=== PATIENT | male | born 1975 | race African-American/Black ===

== ENCOUNTER 2018-12-09 07:18 | Emergency (ER) | payer MEDICARE, MEDICAID ==
[~2018-12-09] VITALS: Ht 175.3 cm; Wt 80.0 kg
[2018-12-09] MEDS ORDERED: IBUPROFEN 600MG TABLET PO STA (08:41)
[2018-12-09 09:07] VITALS: BP 122/86
== END 2018-12-09 09:23 | disposition home or self-care (01) ==
LOC: ER 07:33
DX: R55 Syncope and collapse (principal); M54.89 Other dorsalgia; V47.5XXA Car driver injured in collision with fixed or stationary object in traffic accident, initial encounter; Y93.89 Activity, other specified; Y92.410 Unspecified street and highway as the place of occurrence of the external cause
CPT/HCPCS: 99283